=== PATIENT | female | born 1940 | race Caucasian/White ===

== ENCOUNTER 2023-01-21 10:30 | Observation (INO) | payer MEDICARE ==
[2023-01-21] MEDS ORDERED: CLONIDINE 0.1 MG TABLET PO ONE (10:50)
[2023-01-21] MEDS ORDERED: CLONIDINE 0.1 MG TABLET ONE (10:56)
[2023-01-21 11:13] LABS: Absolute Neutrophil Ct (ANC) 4.67 x10^3/uL (1.4-6.9); BASOPHIL % 0.7 % (0.0-0.4); Basophil (Absolute #) 0.06 x10^3/uL (0-0.4); Eosinophil % 2.3 % (0.00-5.0); Eosinophil (Absolute #) 0.19 x10^3/uL (0-0.5); IMMATURE GRAN # 0.02 x10^3u/L (0.00-0.03); IMMATURE GRAN % 0.2 % (0.00-0.4); Lymphocyte (Absolute #) 2.69 x10^3/uL (1.0-4.6); Lymphocytes % 32.8 % (24.0-44.0); Mean Cell Volume 92.8 fL (78-100); Mean Corpuscular Hemoglobin 28.4 pg (26-32); Mean Corpuscular Hgb Concent. 30.6 g/dL (32-36); Mean Platelet Volume 9.1 fL (7.5-11.0); Monocyte (Absolute #) 0.58 x10^3/uL (0.0-1.3); Monocytes % 7.1 % (0.0-12.0); Neutrophil % 56.9 % (36.0-66.0); Platelet Count 254 x10^3/uL (150-450); Red Blood Count 3.88 x10^6/uL (4.1-5.4); Red Cell Distribution Width 13.7 % (11.5-14.0); White Blood Count 8.2 x10^3/uL (4.0-10.5)
[2023-01-21 11:21] LABS: ADD URINE CULTURE? YES (NO); Appearance Clear (Clear); Bacteria None Seen /HPF (None Seen); Bilirubin Negative (Negative); Blood NHT (Negative); Epithelial Cells None Seen /HPF (None Seen); Glucose, Urine Negative (Negative); Hyaline Casts NONE SEEN /LPF (0-2); Ketones Negative (Negative); Leukocyte Esterase Negative (Negative); Nitrite Negative (Negative); Protein,Urine Dip Trace (Negative); RBC 0-2 /HPF (0-5); Specific Gravity 1.015 (1.005-1.030); Urobilinogen 0.2 mg/dL (0.2)
[2023-01-21] MEDS ORDERED: Lasix 40 MG/4 ML IV ONE (11:22)
[2023-01-21 11:28] LABS: ALBUMIN 4.2 g/dL (3.5-5.0); ANION GAP 11.1 MEQ/L (5-15); BILIRUBIN,TOTAL 0.5 mg/dL (0.2-1.3); Calcium 10.6 mg/dL (8.4-10.2); Creatinine 1 1.58 mg/dL (0.52-1.04); EST GLOMERULAR FILTRATION RATE 33.4 ML/MIN; Potassium 4.2 mmol/L (3.5-5.1); Total Protein 7.5 g/dL (6.3-8.2)
[2023-01-21 11:30] LABS: PROTIME 10.9 SECONDS (9.4-12.5); PTT 22.7 SECONDS (25.1-36.5)
--- NOTE | 2023-01-21 11:30 | ERPHSYRPT ---
- History of Present Illness Source: patient, EMS Exam Limitations: no limitations Patient Subjective Stated Complaint: Pt states "This all started last night. I have been swelling for the past couple of days but last night I started to have some difficulty breathing and my head is killing me." Triage Nursing Assessment: Pt presented alert and oriented X 3, skin wpd. Pt ambulates with an upright steady gait, able to speak in clear full sentences. Pt in no appaernt respiratory distress. Pt resting comfortably on the bed. Physician History: 83 yo WF who is 2L O2 dep at home presents per EMS w increasing LE edema and increasing DUE. She has had nausea and diarrhea wo vomiting. Pt denies chest pain/fever/worsening cough/abdominal pain. She stopped smoking 09/19. Timing/Duration: day(s) (2 days) Activities at Onset: rest Possible Cause: occasional episodes Modifying Factors: Improves With: activity Associated Symptoms: denies symptoms, edema Allergies/Adverse Reactions: Penicillins Allergy (Severe, Verified 01/21/23 10:45) Swelling Home Medications: Albuterol Sulfate [Albuterol Sulfate Hfa] 18 gm IH DAILY 01/21/23 [History] Fluticasone/Umeclidin/Vilanter [Trelegy Ellipta 200-62.5-25] 1 tab PO DAILY 01/21/23 [History] Hydrochlorothiazide 25 mg [hydroDIURIL 25 MG] 25 mg PO DAILY 01/21/23 [History] Hydrocodone/Acetaminophen [Hydrocodone-Acetamin 10-325 mg] 1 each PO DAILY 01/21/23 [History] Meloxicam [Mobic] 15 mg PO DAILY 01/21/23 [History] NIFEdipine [Nifedipine ER] 60 mg PO DAILY 01/21/23 [History] PANTOPRAZOLE 40 mg Tablet [Protonix 40MG Tablet] 40 mg PO DAILY 01/21/23 [History] PARoxetine HCL [Paxil] 40 mg PO DAILY 01/21/23 [History] Potassium Chloride 10 meq PO DAILY 01/21/23 [History] Trazodone HCl 100 mg PO DAILY 01/21/23 [History] prednisoLONE [Prednisolone] 10 mg PO DAILY 01/21/23 [History] Hx Tetanus, Diphtheria Vaccination/Date Given: Yes Hx Influenza Vaccination/Date Given: Yes Hx Pneumococcal Vaccination/Date Given: Yes Immunizations Up to Date: Yes Travel Risk - International Travel Have you traveled outside of the country in past 3 weeks: No - Coronavirus Screening Are you exhibiting any of the following symptoms?: Yes Symptoms: Shortness of Breath, Headaches/Body Aches/Fatigue Close contact with a COVID-19 positive Pt in past 14-21 Days: No - Vaccine Status Have you recieved a Covid-19 vaccination: Yes [employer] Player: Moderna - Vaccination Dates Date of 2cond Vaccination (if applicable): 2020 - Review of Systems Constitutional: No Symptoms, Malaise Eyes: No Symptoms Ears, Nose, & Throat: No Symptoms Respiratory: No Symptoms, Dyspnea on Exertion (WILSON) Cardiac: No Symptoms, Edema Abdominal/Gastrointestinal: No Symptoms, Diarrhea Genitourinary Symptoms: No Symptoms Musculoskeletal: No Symptoms Skin: No Symptoms Neurological: No Symptoms Psychological: No Symptoms Endocrine: No Symptoms Hematologic/Lymphatic: No Symptoms Immunological/Allergic: No Symptoms - Past Medical History Pertinent Past Medical History: Yes Neurological History: No Pertinent History ENT History: No Pertinent History Cardiac History: Hypertension Respiratory History: CHF, COPD Endocrine Medical History: No Pertinent History Musculoskeletal History: Arthritis GI Medical History: GERD History: No Pertinent History Psycho-Social History: Anxiety, Depression Female Reproductive Disorders: No Pertinent History - Past Surgical History Past Surgical History: Yes Other Surgical History: 4 x hernia. bilat knee. samir. appi. hysterectomy - Social History Smoking Status: Former smoker Exposure to second hand smoke: No Drug Use: none Patient Lives Alone: Yes - Nursing Vital Signs Nursing Vital Signs: Initial Vital Signs Temperature 98.1 F 01/21/23 10:35 Pulse Rate 75 01/21/23 10:35 Respiratory Rate 22 01/21/23 10:35 Blood Pressure 263/105 01/21/23 10:35 O2 Sat by Pulse Oximetry 99 01/21/23 10:35 Pain Scale Pain Intensity 0 Hypertensive - Physical Exam General Appearance: no apparent distress Eye Exam: PERRL/EOMI, eyes nml inspection Ears, Nose, Throat Exam: hearing grossly normal, normal pharynx Neck Exam: normal inspection, non-tender, supple, full range of motion, No Brudzinski, No Kernig's, No meningismus Respiratory Exam: airway intact, wheezing (Scattered B expiratory wheezes), No respiratory distress Cardiovascular/Chest Exam: normal heart sounds, regular rate/rhythm, No murmur Abdominal/Gastrointestinal Exam: soft, normal bowel sounds, No tenderness Extremity Exam: pedal edema (2+ B) Neurologic Exam: alert, oriented x 3, cooperative, program professional II-XII nml as tested, normal mood/affect, sensation nml Skin Exam: normal color, warm Lymphatic Exam: No adenopathy SpO2 Interpretation: normal SpO2: 99 O2 Delivery: Room Air - Course Nursing assessment & vital signs reviewed: Yes EKG Interpreted by Me: RATE (NSR/Rate 77/Normal QT-QTc/Tall R wave V2/No acute ST segment changes) - Radiology Exams Chest X-ray Interpretation: Discussed w/ radiologist (NAD) Ordered Tests: Active Orders 24 hr Category Date Time Status Bedrest ROUTINE Activity 01/21/23 12:15 Active Code Status Order ROUTINE Care 01/21/23 12:15 Active EKG-ER Only STAT Care 01/21/23 10:31 Active Gabriel [Catheter-[place] Gabriel] STAT Care 01/21/23 11:09 Active IV Care Q6H Care 01/21/23 12:[address] in Observation ROUTINE Care 01/21/23 12:15 Active Noe Hose, Apply ROUTINE Care 01/21/23 12:15 Active Vital Signs Q4H Care 01/21/23 12:15 Active Weight,Daily 0600 Care 01/21/23 12:15 Active Heart-Healthy Diet Diet 01/21/23 Dinner Active CHEST 1 VIEW (PORTABLE) Routine Exams 01/22/23 07:00 Ordered CHEST 1 VIEW (PORTABLE) Stat Exams 01/21/23 10:32 Completed CBC AM.LAB Lab 01/22/23 04:00 Ordered CBC W DIFF Stat Lab 01/21/23 11:12 Completed CMP AM.LAB Lab 01/22/23 04:00 Ordered CMP Stat Lab 01/21/23 11:12 Completed CULTURE,URINE Stat Lab 01/21/23 11:04 Received Lactic Acid Stat Lab 01/21/23 10:58 Completed MAGNESIUM Stat Lab 01/21/23 11:12 Completed NT PRO BNPII Stat Lab 01/21/23 11:12 Completed PROTIME WITH INR Stat Lab 01/21/23 11:12 Completed PTT Stat Lab 01/21/23 11:12 Completed TROPONIN Q4H Lab 01/21/23 11:12 Completed TROPONIN Q4H Lab 01/21/23 14:45 Ordered TROPONIN Q4H Lab 01/21/23 18:45 Ordered UA W/RFX UR CULTURE Stat Lab 01/21/23 11:04 Completed Oxygen Nasal Cannula 3 lpm RT 01/21/23 12:15 Active Respiratory Therapy Assessment DAILY RT 01/21/23 11:51 Active Transfer Order Routine Transfer 01/21/23 Ordered Medication Summary Generic Name Dose Route Start Last Admin Trade Name Freq PRN Reason Stop Dose Admin Albuterol/Ipratropium 3 ml 01/21/23 15:00 Ipratropium/Albuterol Sulfate 3 Ml Ampul.Neb IH 02/20/23 14:59 Q4HRT MARGARET Furosemide 40 mg 01/21/23 12:30 Furosemide 40 Mg/4 Ml Vial IV 02/20/23 12:29 Q12H MARGARET Heparin Sodium (Beef Lung) 5,000 unit 01/21/23 22:00 Heparin 5000 Units/0.5 Ml 5,000 Unit/0.5 Ml Syr SQ 02/20/23 21:59 BID MARGARET Discontinued Medications Generic Name Dose Route Start Last Admin Trade Name Joey PRN Reason Stop Dose Admin Albuterol/Ipratropium 3 ml 01/21/23 11:31 01/21/23 11:51 Ipratropium/Albuterol Sulfate 3 Ml Ampul.Neb IH 01/21/23 11:32 3 ml STAT ONE Administration Albuterol/Ipratropium Confirm 01/21/23 11:41 Ipratropium/Albuterol Sulfate 3 Ml Ampul.Neb Administered 01/21/23 11:42 Dose 3 ml IH .STK-MED ONE Clonidine 0.2 mg 01/21/23 10:50 01/21/23 10:57 Clonidine Hcl 0.1 Mg Tablet PO 01/21/23 10:51 0.2 mg STAT ONE Administration Clonidine Confirm 01/21/23 10:56 Clonidine Hcl 0.1 Mg Tablet Administered 01/21/23 10:57 Dose 0.2 mg .ROUTE .STK-MED ONE Methylprednisolone Sodium 0 mg 01/21/23 12:20 Succinate 125 mg/ Sterile IV 01/21/23 12:21 Water 2 ml STAT ONE Furosemide 40 mg 01/21/23 11:22 01/21/23 11:38 Furosemide 40 Mg/4 Ml Vial IV 01/21/23 11:23 40 mg STAT ONE Administration Furosemide Confirm 01/21/23 11:37 Furosemide 40 Mg/4 Ml Vial Administered 01/21/23 11:38 Dose 40 mg .ROUTE .STK-MED ONE Hydralazine HCl 20 mg 01/21/23 11:35 01/21/23 11:38 Hydralazine Hcl 20 Mg/Ml Vial IV 01/21/23 11:36 Not Given STAT ONE Hydralazine HCl Confirm 01/21/23 11:36 Hydralazine Hcl 20 Mg/Ml Vial Administered 01/21/23 11:37 Dose 20 mg .ROUTE .STK-MED ONE Lab/Rad Data: Laboratory Result Diagrams 01/21/23 11:12 01/21/23 11:12 Laboratory Results 01/21/23 01/21/23 01/21/23 Range/Units 11:12 11:12 11:12 WBC (4.0-10.5) x10^3/uL RBC (4.1-5.4) x10^6/uL Hgb (12.0-16.0) g/dL Hct (35-47) % MCV (78-100) fL MCH (26-32) pg MCHC (32-36) g/dL RDW (11.5-14.0) % Plt Count (150-450) x10^3/uL MPV (7.5-11.0) fL Gran % (36.0-66.0) % Immature Gran % (Auto) (0.00-0.4) % Nucleat RBC Rel Count (0.00-0.1) % Eos # (Auto) (0-0.5) x10^3/uL Immature Gran # (Auto) (0.00-0.03) x10^3u/L Absolute Lymphs (auto) (1.0-4.6) x10^3/uL Absolute Monos (auto) (0.0-1.3) x10^3/uL Absolute Nucleated RBC (0.00-0.01) x10^3u/L Lymphocytes % (24.0-44.0) % Monocytes % (0.0-12.0) % Eosinophils % (0.00-5.0) % Basophils % (0.0-0.4) % Absolute Granulocytes (1.4-6.9) x10^3/uL Basophils # (0-0.4) x10^3/uL PT 10.9 (9.4-12.5) SECONDS INR 1.00 (0.8-3.0) APTT 22.7 L (25.1-36.5) SECONDS Sodium (137-145) mmol/L Potassium (3.5-5.1) mmol/L Chloride (98-107) mmol/L Carbon Dioxide (22-30) mmol/L Anion Gap (5-15) MEQ/L BUN (7-17) mg/dL Creatinine (0.52-1.04) mg/dL Estimated GFR ML/MIN Glucose (74-106) mg/dL Lactic Acid (0.4-2.0) Calcium (8.4-10.2) mg/dL Magnesium (1.6-2.3) mg/dL Total Bilirubin (0.2-1.3) mg/dL AST (14-36) U/L ALT (0-35) U/L Alkaline Phosphatase (38-126) U/L Troponin I 0.018 (0.000-0.034) ng/mL NT-Pro-B Natriuret Pep 656 (<300) pg/mL Serum Total Protein (6.3-8.2) g/dL Albumin (3.5-5.0) g/dL Urine Color (Yellow) Urine Appearance (Clear) Urine pH (4.6-8.0) Ur Specific [place] (1.005-1.030) Urine Protein (Negative) Urine Glucose (UA) (Negative) mg/dL Urine Ketones (Negative) Urine Blood (Negative) Urine Nitrite (Negative) Urine Bilirubin (Negative) Urine Urobilinogen (0.2) mg/dL Ur Leukocyte Esterase (Negative) U Hyaline Cast (Auto) (0-2) /LPF Urine Microscopic RBC (0-5) /HPF Urine Microscopic WBC (0-5) /HPF Ur Epithelial Cells (None Seen) /HPF Urine Bacteria (None Seen) /HPF Urine Culture Reflexed (NO) Influenza Type A Ag (NEGATIVE) Influenza Type B Ag (NEGATIVE) RSV (PCR) (NEGATIVE) SARS-CoV-2 (PCR) (NEGATIVE) 01/21/23 01/21/23 01/21/23 Range/Units 11:12 11:12 11:04 WBC 8.2 (4.0-10.5) x10^3/uL RBC 3.88 L (4.1-5.4) x10^6/uL Hgb 11.0 L (12.0-16.0) g/dL Hct 36.0 (35-47) % MCV 92.8 (78-100) fL MCH 28.4 (26-32) pg MCHC 30.6 L (32-36) g/dL RDW 13.7 (11.5-14.0) % Plt Count 254 (150-450) x10^3/uL MPV 9.1 (7.5-11.0) fL Gran % 56.9 (36.0-66.0) % Immature Gran % (Auto) 0.2 (0.00-0.4) % Nucleat RBC Rel Count 0.0 (0.00-0.1) % Eos # (Auto) 0.19 (0-0.5) x10^3/uL Immature Gran # (Auto) 0.02 (0.00-0.03) x10^3u/L Absolute Lymphs (auto) 2.69 (1.0-4.6) x10^3/uL Absolute Monos (auto) 0.58 (0.0-1.3) x10^3/uL Absolute Nucleated RBC 0.00 (0.00-0.01) x10^3u/L Lymphocytes % 32.8 (24.0-44.0) % Monocytes % 7.1 (0.0-12.0) % Eosinophils % 2.3 (0.00-5.0) % Basophils % 0.7 (0.0-0.4) % Absolute Granulocytes 4.67 (1.4-6.9) x10^3/uL Basophils # 0.06 (0-0.4) x10^3/uL PT (9.4-12.5) SECONDS INR (0.8-3.0) APTT (25.1-36.5) SECONDS Sodium 136 L (137-145) mmol/L Potassium 4.2 (3.5-5.1) mmol/L Chloride 102 (98-107) mmol/L Carbon Dioxide 27 (22-30) mmol/L Anion Gap 11.1 (5-15) MEQ/L BUN 26 H (7-17) mg/dL Creatinine 1.58 H (0.52-1.04) mg/dL Estimated GFR 33.4 ML/MIN Glucose 100 (74-106) mg/dL Lactic Acid (0.4-2.0) Calcium 10.6 H (8.4-10.2) mg/dL Magnesium 2.0 (1.6-2.3) mg/dL Total Bilirubin 0.50 (0.2-1.3) mg/dL AST 21 (14-36) U/L ALT 12 (0-35) U/L Alkaline Phosphatase 83 (38-126) U/L Troponin I (0.000-0.034) ng/mL NT-Pro-B Natriuret Pep (<300) pg/mL Serum Total Protein 7.5 (6.3-8.2) g/dL Albumin 4.2 (3.5-5.0) g/dL Urine Color Yellow (Yellow) Urine Appearance Clear (Clear) Urine pH 6.0 (4.6-8.0) Ur Specific [place] 1.015 (1.005-1.030) Urine Protein Trace A (Negative) Urine Glucose (UA) Negative (Negative) mg/dL Urine Ketones Negative (Negative) Urine Blood NHT (Negative) Urine Nitrite Negative (Negative) Urine Bilirubin Negative (Negative) Urine Urobilinogen 0.2 (0.2) mg/dL Ur Leukocyte Esterase Negative (Negative) U Hyaline Cast (Auto) NONE SEEN (0-2) /LPF Urine Microscopic RBC 0-2 (0-5) /HPF Urine Microscopic WBC 3-5 (0-5) /HPF Ur Epithelial Cells None Seen (None Seen) /HPF Urine Bacteria None Seen (None Seen) /HPF Urine Culture Reflexed YES (NO) Influenza Type A Ag (NEGATIVE) Influenza Type B Ag (NEGATIVE) RSV (PCR) (NEGATIVE) SARS-CoV-2 (PCR) (NEGATIVE) 01/21/23 01/21/23 Range/Units 10:58 10:45 WBC (4.0-10.5) x10^3/uL RBC (4.1-5.4) x10^6/uL Hgb (12.0-16.0) g/dL Hct (35-47) % MCV (78-100) fL MCH (26-32) pg MCHC (32-36) g/dL RDW (11.5-14.0) % Plt Count (150-450) x10^3/uL MPV (7.5-11.0) fL Gran % (36.0-66.0) % Immature Gran % (Auto) (0.00-0.4) % Nucleat RBC Rel Count (0.00-0.1) % Eos # (Auto) (0-0.5) x10^3/uL Immature Gran # (Auto) (0.00-0.03) x10^3u/L Absolute Lymphs (auto) (1.0-4.6) x10^3/uL Absolute Monos (auto) (0.0-1.3) x10^3/uL Absolute Nucleated RBC (0.00-0.01) x10^3u/L Lymphocytes % (24.0-44.0) % Monocytes % (0.0-12.0) % Eosinophils % (0.00-5.0) % Basophils % (0.0-0.4) % Absolute Granulocytes (1.4-6.9) x10^3/uL Basophils # (0-0.4) x10^3/uL PT (9.4-12.5) SECONDS INR (0.8-3.0) APTT (25.1-36.5) SECONDS Sodium (137-145) mmol/L Potassium (3.5-5.1) mmol/L Chloride (98-107) mmol/L Carbon Dioxide (22-30) mmol/L Anion Gap (5-15) MEQ/L BUN (7-17) mg/dL Creatinine (0.52-1.04) mg/dL Estimated GFR ML/MIN Glucose (74-106) mg/dL Lactic Acid 1.1 (0.4-2.0) Calcium (8.4-10.2) mg/dL Magnesium (1.6-2.3) mg/dL Total Bilirubin (0.2-1.3) mg/dL AST (14-36) U/L ALT (0-35) U/L Alkaline Phosphatase (38-126) U/L Troponin I (0.000-0.034) ng/mL NT-Pro-B Natriuret Pep (<300) pg/mL Serum Total Protein (6.3-8.2) g/dL Albumin (3.5-5.0) g/dL Urine Color (Yellow) Urine Appearance (Clear) Urine pH (4.6-8.0) Ur Specific [place] (1.005-1.030) Urine Protein (Negative) Urine Glucose (UA) (Negative) mg/dL Urine Ketones (Negative) Urine Blood (Negative) Urine Nitrite (Negative) Urine Bilirubin (Negative) Urine Urobilinogen (0.2) mg/dL Ur Leukocyte Esterase (Negative) U Hyaline Cast (Auto) (0-2) /LPF Urine Microscopic RBC (0-5) /HPF Urine Microscopic WBC (0-5) /HPF Ur Epithelial Cells (None Seen) /HPF Urine Bacteria (None Seen) /HPF Urine Culture Reflexed (NO) Influenza Type A Ag NEGATIVE (NEGATIVE) Influenza Type B Ag NEGATIVE (NEGATIVE) RSV (PCR) NEGATIVE (NEGATIVE) SARS-CoV-2 (PCR) NEGATIVE (NEGATIVE) - Progress Progress: improved Progress Note: 01/21/23 12:21 Nursing note and vital signs reviewed No food or housing insecurities noted BP markedly improved w 0.2 po Clonidine 40mg IV Lasix w adequate diuresis Duoneb w improvement 125mg IV Solumedrol Gabriel placed by nursing for incontinence/I&O measurement Full code per pt Additional history per son later in visit Obs per Dr. Chavez for hypertensive urgency/CHF/COPD exacerbation 01/21/23 12:27 Discussed with : Anay Counseled pt/family regarding: lab results, diagnosis, need for follow-up, rad results Medical Desision Making - Independent Historian Additional History obtained from: Child - Discussion of managment Care discussed with:: on-call "doc" Reviewed:: Test results, Need for additional workup Agreed on:: Treatment plan, place in obs Will see patient: in hospital - Diagnostic Testing Diagnostic test were ordered, analyzed, and reviewed by me: Yes Radiological Interpretation: Discussed w/ radiologist - Risk of complications The pt has a high risk of morbidity or mortality based on: Drug therapy requiring intensive monitoring for toxicity - Departure Departure Disposition: Observation Clinical Impression: Hypertensive urgency, CHF (congestive heart failure), COPD (chronic obstructive pulmonary disease) Condition: Stable Critical Care Time: Yes Critical Care Time(excluding separately billable procedures): Critical 30-74 mins Referrals: MICHAELA STRATTON MD [Primary Care Provider] - Follow up/PCP as directed Instructions: Heart Failure, Chronic Obstructive Pulmonary Disease
[2023-01-21] MEDS ORDERED: DUONEB 0.5-3 MG/3 ml Neb IH ONE ×2 (11:31→11:41)
[2023-01-21] MEDS ORDERED: APRESOLINE 20 MG/ML INJ IV ONE (11:35)
[2023-01-21] MEDS ORDERED: APRESOLINE 20 MG/ML INJ ONE (11:36)
[2023-01-21] MEDS ORDERED: Lasix 40 MG/4 ML ONE (11:37)
[2023-01-21 11:45] LABS: INFLUENZA A NEGATIVE (NEGATIVE); INFLUENZA B NEGATIVE (NEGATIVE); RESPIRATORY SYNCTIAL VIRUS NEGATIVE (NEGATIVE); SARS-CoV-2 Xpert Express NEGATIVE (NEGATIVE)
--- NOTE | 2023-01-21 12:08 | XRAY ---
Indication: Dyspnea. Comparison: March 25, 2022 Portable chest again demonstrates COPD and a few tiny calcified granulomas. No focal infiltrate, consolidation, or large effusion. Heart remains borderline enlarged. Bony thorax intact again with osteopenia, mild degenerative changes, and mild scoliosis. Impression: Continued nonacute chest with chronic features.
[2023-01-21] MEDS ORDERED: solu-MEDROL 125 MG, Sterile H2O 10 ml 2 ML IV ONE ×4 (12:20→15:00)
[2023-01-21] MEDS ORDERED: Lasix 40 MG/4 ML IV SCH ×3 (12:30→22:00)
[2023-01-21] MEDS ORDERED: HYDROCODONE-ACETAMIN 10-325 MG PO ONE (13:01)
[2023-01-21] MEDS ORDERED: HYDROCODONE-ACETAMIN 10-325 MG ONE (13:02)
[2023-01-21] MEDS ORDERED: DUONEB 0.5-3 MG/3 ml Neb IH SCH ×2 (15:00)
[2023-01-21] MEDS: VENTOLIN COMMON CANISTER IH SCH ×2 (15:29→19:16)
[2023-01-21] MEDS ORDERED: Ventolin Hfa MDI IH SCH (17:00)
[2023-01-21] MEDS ORDERED: MEDICATION INTERVENTION MC SCH (17:15)
[2023-01-21] MEDS: Adalat CC 30 MG TABLET PO SCH (17:46)
[2023-01-21] MEDS: Paxil 20 MG PO SCH (17:46)
[2023-01-21] MEDS: MELOXICAM PO SCH (17:47)
[2023-01-21] MEDS: Klor Con PO SCH (17:47)
[2023-01-21] MEDS: CLARITIN 10 MG PO SCH (17:47)
[2023-01-21] MEDS: hydroDIURIL 25 MG PO SCH (17:47)
[2023-01-21] MEDS: Protonix 40MG Tablet PO SCH (17:47)
[2023-01-21] MEDS: HYDROCODONE-ACETAMIN 10-325 MG PO PRN ×2 (17:49→21:54)
[2023-01-21] MEDS: Advair Hfa 115/21 Common canister IH SCH (19:17)
[2023-01-21] MEDS: Abilify 10 MG PO SCH (21:52)
[2023-01-21] MEDS: DESYREL 50 MG PO SCH (21:54)
[2023-01-21] MEDS: Neurontin PO SCH (21:55)
[2023-01-21] MEDS ORDERED: HEPARIN 5000 UNITS/0.5 ML (HIGH RISK MED) SQ SCH ×2 (22:00)
[2023-01-22 05:36] LABS: Hematocrit 33.2 % (35-47); Hemoglobin 10.5 g/dL (12.0-16.0); Mean Cell Volume 90.5 fL (78-100); Mean Corpuscular Hemoglobin 28.6 pg (26-32); Mean Corpuscular Hgb Concent. 31.6 g/dL (32-36); Mean Platelet Volume 9.2 fL (7.5-11.0); Platelet Count 260 x10^3/uL (150-450); Red Blood Count 3.67 x10^6/uL (4.1-5.4); Red Cell Distribution Width 13.4 % (11.5-14.0)
[2023-01-22 06:50] LABS: ANION GAP 11.6 MEQ/L (5-15); BILIRUBIN,TOTAL 0.3 mg/dL (0.2-1.3); Calcium 10.7 mg/dL (8.4-10.2); Creatinine 1 1.72 mg/dL (0.52-1.04); EST GLOMERULAR FILTRATION RATE 30.2 ML/MIN; Potassium 4.2 mmol/L (3.5-5.1); Total Protein 7.1 g/dL (6.3-8.2)
[2023-01-22] MEDS: Advair Hfa 115/21 Common canister IH SCH ×2 (07:12→18:55)
[2023-01-22] MEDS: VENTOLIN COMMON CANISTER IH SCH ×5 (07:12→18:55)
--- NOTE | 2023-01-22 08:53 | XRAY ---
Indication: COPD. Comparison: One day earlier. PA/lateral chest remains clear with incidental COPD, tiny focal eventration right hemidiaphragm, and a few tiny calcified granulomas. Heart not enlarged. No new/acute findings.
[2023-01-22] MEDS: Paxil 20 MG PO SCH (09:45)
[2023-01-22] MEDS: Adalat CC 30 MG TABLET PO SCH (09:45)
[2023-01-22] MEDS: MELOXICAM PO SCH (09:45)
[2023-01-22] MEDS: Protonix 40MG Tablet PO SCH (09:46)
[2023-01-22] MEDS: hydroDIURIL 25 MG PO SCH (09:46)
[2023-01-22] MEDS: Neurontin PO SCH ×3 (09:46→21:44)
[2023-01-22] MEDS: Klor Con PO SCH (09:46)
[2023-01-22] MEDS: ENOXAPARIN SODIUM SQ SCH (09:47)
[2023-01-22] MEDS: CLARITIN 10 MG PO SCH (09:50)
[2023-01-22] MEDS ORDERED: NON-FORMULARY ITEM (Nifedipine [Nifedipine Er] 60 MG Tab.Er.24) PO SCH (10:00)
[2023-01-22] MEDS ORDERED: NON-FORMULARY ITEM (Potassium Chloride [Potassium Chloride] 10 MEQ Capsule.Er) PO SCH (10:00)
[2023-01-22] MEDS ORDERED: MELOXICAM 15 MG PO SCH (10:00)
[2023-01-22] MEDS ORDERED: NON-FORMULARY ITEM (Fluticasone/Umeclidin/Vilanter [Trelegy Ellipta 100-62.5-25] 1 EACH Bl IH SCH (10:00)
[2023-01-22] MEDS: Zanaflex 4 MG PO PRN ×2 (12:29→21:47)
[2023-01-22] MEDS: Abilify 10 MG PO SCH (21:44)
[2023-01-22] MEDS: DESYREL 50 MG PO SCH (21:45)
[2023-01-22] MEDS: HYDROCODONE-ACETAMIN 10-325 MG PO PRN (23:42)
[2023-01-23] MEDS: Advair Hfa 115/21 Common canister IH SCH ×2 (07:15→18:37)
[2023-01-23] MEDS: VENTOLIN COMMON CANISTER IH SCH ×4 (07:15→18:37)
[2023-01-23] MEDS: Adalat CC 30 MG TABLET PO SCH (09:32)
[2023-01-23] MEDS: Paxil 20 MG PO SCH (09:32)
[2023-01-23] MEDS: MELOXICAM PO SCH (09:32)
[2023-01-23] MEDS: hydroDIURIL 25 MG PO SCH (09:32)
[2023-01-23] MEDS: CLARITIN 10 MG PO SCH (09:32)
[2023-01-23] MEDS: Neurontin PO SCH ×3 (09:32→21:49)
[2023-01-23] MEDS: Protonix 40MG Tablet PO SCH (09:32)
[2023-01-23] MEDS: Klor Con PO SCH (09:32)
[2023-01-23] MEDS: ENOXAPARIN SODIUM SQ SCH (09:35)
[2023-01-23] MEDS ORDERED: Sodium Chloride 0.9% 1000 ML 1,000 ML IV SCH (12:00)
[2023-01-23] MEDS: solu-MEDROL 40 MG, Sterile H2O 10 ml 1 ML IV SCH ×4 (12:10→21:49)
--- NOTE | 2023-01-23 17:47 | PCM.HP ---
History of Present Illness - Chief Complaint Chief Complaint: Hypertensive urgency/CHF/COPD History of Present Illness: is a 83 year old female.w increasing LE edema and increasing DUE. She has had nausea and diarrhea wo vomiting. Pt denies chest pain/fever/worsening cough/abdominal pain. She stopped smoking 09/19. Timing/Duration: day(s) (2 days) Activities at Onset: rest Possible Cause: occasional episodes Modifying Factors: Improves With: activity Associated Symptoms: denies symptoms, edema - Review of Systems Constitutional: No Fever, No Chills Eyes: No Symptoms Ears, Nose, & Throat: No Symptoms Respiratory: Cough, Orthopnea, Short Of Breath, Wheezing Cardiac: Edema, Orthopnea, PND, No Chest Pain, No Syncope Abdominal/Gastrointestinal: No Abdominal Pain, No Nausea, No Vomiting, No Diarrhea Genitourinary Symptoms: No Dysuria Musculoskeletal: No Back Pain, No Neck Pain Skin: No Rash Neurological: No Dizziness, No Focal Weakness, No Sensory Changes Psychological: No Symptoms Endocrine: No Symptoms Hematologic/Lymphatic: No Symptoms Immunological/Allergic: No Symptoms Medications & Allergies Home Medications: Home Medication List Albuterol 8 gm Mdi Hfa [Ventolin Hfa MDI] 2 puffs IH QID 01/21/23 [History Confirmed 01/21/23] Aripiprazole 10 mg [Abilify 10 MG] 5 mg PO HS 01/21/23 [History Confirmed 01/21/23] Fluticasone/Umeclidin/Vilanter [Trelegy Ellipta 100-62.5-25] 1 puff IH DAILY 01/21/23 [History Confirmed 01/21/23] Gabapentin [Neurontin ] 100 mg PO TID 01/21/23 [History Confirmed 01/21/23] Hydrochlorothiazide 25 mg [hydroDIURIL 25 MG] 25 mg PO DAILY 01/21/23 [History Confirmed 01/21/23] Hydrocodone/Acetaminophen [Hydrocodone-Acetamin 10-325 mg] 1 tab PO TID PRN PRN 01/21/23 [History Confirmed 01/21/23] Loratadine 10 mg [Claritin 10 mg] 10 mg PO DAILY 01/21/23 [History Confirmed 01/21/23] Meloxicam 15 mg PO DAILY 01/21/23 [History Confirmed 01/21/23] NIFEdipine [Nifedipine ER] 60 mg PO DAILY 01/21/23 [History Confirmed 01/21/23] PANTOPRAZOLE 40 mg Tablet [Protonix 40MG Tablet] 40 mg PO DAILY 01/21/23 [History Confirmed 01/21/23] Paroxetine HCl 20 mg [Paxil 20 MG] 40 mg PO DAILY 01/21/23 [History Confirmed 01/21/23] Potassium Chloride 10 meq PO DAILY 01/21/23 [History Confirmed 01/21/23] Trazodone HCl 50 mg [Desyrel 50 mg] 100 mg PO HS 01/21/23 [History Confirm ed 01/21/23] Allergies/Adverse Reactions: Allergies Allergy/AdvReac Type Severity Reaction Status Date / Time Penicillins Allergy Severe Swelling Verified 01/21/23 10:45 - Past Medical History Past Medical History: Yes Neurological History: No Pertinent History ENT History: No Pertinent History Cardiac History: Hypertension Respiratory History: CHF, COPD Endocrine Medical History: No Pertinent History Musculoskelatal History: Arthritis GI Medical History: GERD History: No Pertinent History Pyscho-Social History: Anxiety, Depression Reproductive Disorders: No Pertinent History - Past Surgical History Past Surgical History: Yes Neuro Surgical History: No Pertinent History Cardiac History: No Pertinent History Respiratory Surgery: No Pertinent History GI Surgical History: Appendectomy, Cholecystectomy Musculskeletal Surgical Hx: Joint Replacement Female Surgical History: Hysterectomy Other Surgical History: 4 x hernia. bilat knee. samir. appi. hysterectomy - Social History Smoking Status: Former smoker How long have you smoked: 60 yrs Exposure to second hand smoke: No Alcohol: None Drug Use: none - Physical Exam Vital Signs: Vital Signs - 24 hr Temp Pulse Resp BP Pulse Ox 01/23/23 15:15 76 18 96 01/23/23 11:53 97 F 68 16 129/61 95 01/23/23 10:38 86 22 97 01/23/23 09:05 52 L 20 97 01/23/23 09:00 97.8 F 57 L 17 122/59 01/23/23 08:40 97.8 F 57 L 17 122/59 95 01/23/23 04:37 98.2 F 64 20 135/61 95 01/22/23 23:41 97.9 F 63 18 134/62 96 01/22/23 20:00 98.1 F 67 20 133/61 96 01/22/23 18:55 72 18 93 L General Appearance: no apparent distress, alert Neurologic Exam: alert, oriented x 3, cooperative, normal mood/affect, nml cerebellar function, nml station & gait, sensation nml, No motor deficits Eye Exam: PERRL/EOMI, eyes nml inspection Ears, Nose, Throat Exam: normal ENT inspection, TMs normal, pharynx normal, moist mucous membranes Neck Exam: normal inspection, non-tender, supple, full range of motion Respiratory Exam: diminished breath sounds, crackles/rales, rhonchi, wheezing, No respiratory distress, No accessory muscle use Cardiovascular Exam: regular rate/rhythm, normal heart sounds, normal peripheral pulses Gastrointestinal/Abdomen Exam: soft, normal bowel sounds, No tenderness, No mass Back Exam: normal inspection, normal range of motion, No CVA tenderness, No vertebral tenderness Extremity Exam: normal inspection, normal range of motion, pelvis stable Skin Exam: normal color, warm, dry, No rash Lymphatic Exam: No adenopathy Results - Labs Lab/Micro Results: Lab Results-Last 24 Hours 01/22/23 01/23/23 01/23/23 Range/Units 21:02 08:09 12:37 POC Glucometer 125 H 95 94 (74 to 106) mg/dL Microbiology 01/21/23 11:04 Urine Culture - Final Urine, Catheterized NO GROWTH - Radiology Impressions Radiology Exams & Impressions: Radiology Procedures Category Date Time Status CHEST 2 VIEWS (PA AND LAT) Routine Exams 01/22/23 08:00 Completed Assessment/Plan (1) CHF (congestive heart failure) Current Visit: Yes Status: Acute Qualifiers: Heart failure type: combined systolic and diastolic Heart failure chronicity: acute on chronic Qualified Code(s): I50.43 - Acute on chronic combined systolic (congestive) and diastolic (congestive) heart failure Assessment & Plan: Chief Complaint Diagnosis Hypertensive urgency/CHF/COPD Allergies Allergy/AdvReac Type Severity Reaction Status Date / Time Penicillins Allergy Severe Swelling Verified 01/21/23 10:45 Vital Signs (Last 24 hours) Temp Pulse Resp BP Pulse Ox 01/23/23 15:15 76 18 96 01/23/23 11:53 97 F 68 16 129/61 95 01/23/23 10:38 86 22 97 01/23/23 09:05 52 L 20 97 01/23/23 09:00 97.8 F 57 L 17 122/59 01/23/23 08:40 97.8 F 57 L 17 122/59 95 01/23/23 04:37 98.2 F 64 20 135/61 95 01/22/23 23:41 97.9 F 63 18 134/62 96 01/22/23 20:00 98.1 F 67 20 133/61 96 01/22/23 18:55 72 18 93 L Home Medications Medication Instructions Recorded Confirmed Last Taken Type Albuterol 8 gm Mdi Hfa 2 puffs IH QID 01/21/23 01/21/23 Unknown History [Ventolin Hfa MDI] Aripiprazole 10 mg [Abilify 10 5 mg PO HS 01/21/23 01/21/23 Unknown History MG] Fluticasone/Umeclidin/Vilanter 1 puff IH DAILY 01/21/23 01/21/23 Unknown History [Trelegy Ellipta 100-62.5-25] Gabapentin [Neurontin ] 100 mg PO TID 01/21/23 01/21/23 Unknown History Hydrochlorothiazide 25 mg 25 mg PO DAILY 01/21/23 01/21/23 Unknown History [hydroDIURIL 25 MG] Hydrocodone/Acetaminophen 1 tab PO TID PRN PRN 01/21/23 01/21/23 Unknown History [Hydrocodone-Acetamin 10-325 mg] Loratadine 10 mg [Claritin 10 10 mg PO DAILY 01/21/23 01/21/23 Unknown History mg] Meloxicam 15 mg PO DAILY 01/21/23 01/21/23 Unknown History NIFEdipine [Nifedipine ER] 60 mg PO DAILY 01/21/23 01/21/23 Unknown History PANTOPRAZOLE 40 mg Tablet 40 mg PO DAILY 01/21/23 01/21/23 Unknown History [Protonix 40MG Tablet] Paroxetine HCl 20 mg [Paxil 20 40 mg PO DAILY 01/21/23 01/21/23 01/19/23 History MG] Potassium Chloride 10 meq PO DAILY 01/21/23 01/21/23 Unknown History Trazodone HCl 50 mg [Desyrel 50 100 mg PO HS 01/21/23 01/21/23 Unknown History mg] Current Medications Generic Name Dose Route Start Last Admin Trade Name Freq PRN Reason Stop Dose Admin Hydrocodone Bitart/Acetaminophen 1 tablet 01/21/23 17:00 01/22/23 23:42 Hydrocodone/Acetamin 10-325 Mg Tablet PO 01/26/23 16:59 1 tablet TID PRN PRN Administration PAIN Albuterol Sulfate 2 puff 01/22/23 07:22 01/23/23 15:13 Albuterol Common Canister Inhaler IH 02/20/23 14:59 2 puff QIDRT MARGARET Administration Aripiprazole 5 mg 01/21/23 22:00 01/22/23 21:44 Aripiprazole 10 Mg Tablet PO 02/20/23 21:59 5 mg HS MARGARET Administration Artificial Tears 1 ml 01/23/23 22:00 Polyvinyl Alcohol 15 Ml Bottle OP 02/22/23 21:59 BID MARGARET Methylprednisolone Sodium 0 mg 01/23/23 14:00 01/23/23 12:10 Succinate 40 mg/ Sterile Water IV 02/22/23 13:59 40 mg 1 ml Q8HT MARGARET Administration Enoxaparin Sodium 30 mg 01/22/23 10:00 01/23/23 09:35 Enoxaparin Sodium 30 Mg/0.3 Ml Syringe SQ 02/21/23 09:59 Not Given DAILY MARGARET Gabapentin 100 mg 01/21/23 22:00 01/23/23 16:08 Gabapentin 100 Mg Capsule PO 02/20/23 21:59 100 mg TID MARGARET Administration Hydrochlorothiazide 25 mg 01/21/23 18:00 01/23/23 09:32 Hydrochlorothiazide 25 Mg Tablet PO 02/20/23 17:59 25 mg DAILY MARGARET Administration Sodium Chloride 1,000 mls @ 50 mls/hr 01/23/23 12:00 01/23/23 12:09 Sodium Chloride 0.9% 1000 Ml IV 02/22/23 11:59 50 mls/hr .Q20H MARGARET Administration Loratadine 10 mg 01/21/23 18:00 01/23/23 09:32 Loratadine 10 Mg Tablet PO 02/20/23 17:59 10 mg DAILY MARGARET Administration Meloxicam 15 mg 01/21/23 18:00 01/23/23 09:32 Meloxicam 7.5 Mg Tablet PO 02/20/23 17:59 15 mg DAILY MARGARET Administration Nifedipine 60 mg 01/21/23 18:00 01/23/23 09:32 Nifedipine Xl 30 Mg Tablet.Sa PO 02/20/23 17:59 60 mg DAILY MARGARET Administration Pantoprazole Sodium 40 mg 01/21/23 18:00 01/23/23 09:32 Protonix (Pantoprazole) 40 Mg Tablet PO 02/20/23 17:59 40 mg DAILY MARGARET Administration Paroxetine HCl 40 mg 01/21/23 18:00 01/23/23 09:32 Paroxetine Hcl 20 Mg Tablet PO 02/20/23 17:59 40 mg DAILY MARGARET Administration Potassium Chloride 10 meq 01/21/23 18:00 01/23/23 09:32 Potassium Chloride Tab 10 Meq Tab PO 02/20/23 17:59 10 meq DAILY MARGARET Administration Fluticasone/Salmeterol 2 puff 01/21/23 19:00 01/23/23 07:15 Fluticasone/Salmeterol 115/21 - 120 Puff Common Canister IH 02/20/23 18:59 2 puff BIDRT MARGARET Administration Tizanidine HCl 2 mg 01/22/23 11:56 01/22/23 21:47 Tizanidine Hcl 4 Mg Tablet PO 02/21/23 11:55 2 mg TID PRN PRN Administration MUSCLE SPASMS Trazodone HCl 100 mg 01/21/23 22:00 01/22/23 21:45 Trazodone Hcl 50 Mg Tablet PO 02/20/23 21:59 100 mg HS MARGARET Administration Discontinued Medications Generic Name Dose Route Start Last Admin Trade Name Freq PRN Reason Stop Dose Admin Hydrocodone Bitart/Acetaminophen 1 tablet 01/21/23 13:01 01/21/23 13:02 Hydrocodone/Acetamin 10-325 Mg Tablet PO 01/21/23 13:02 1 tablet STAT ONE Administration Hydrocodone Bitart/Acetaminophen Confirm 01/21/23 13:02 Hydrocodone/Acetamin 10-325 Mg Tablet Administered 01/21/23 13:03 Dose 1 tablet .ROUTE .STK-MED ONE Albuterol Sulfate 4 puff 01/21/23 15:00 01/22/23 09:21 Albuterol Common Canister Inhaler 02/20/23 14:59 Not Given QIDRT MARGARET Albuterol Sulfate gm 01/21/23 17:00 Albuterol Sulfate 8 Gm Mdi Hfa 02/20/23 16:59 QID MARGARET Albuterol/Ipratropium 3 ml 01/21/23 11:31 01/21/23 11:51 Ipratropium/Albuterol Sulfate 3 Ml Ampul.Neb IH 01/21/23 11:32 3 ml STAT ONE Administration Albuterol/Ipratropium Confirm 01/21/23 11:41 Ipratropium/Albuterol Sulfate 3 Ml Ampul.Neb Administered 01/21/23 11:42 Dose 3 ml IH .STK-MED ONE Albuterol/Ipratropium 3 ml 01/21/23 15:00 Ipratropium/Albuterol Sulfate 3 Ml Ampul.Neb 02/20/23 14:59 Q4HRT MARGARET Albuterol/Ipratropium 3 ml 01/21/23 15:00 01/21/23 15:21 Ipratropium/Albuterol Sulfate 3 Ml Ampul.Neb 02/20/23 14:59 Not Given Q4HRT MARGARET Clonidine 0.2 mg 01/21/23 10:50 01/21/23 10:57 Clonidine Hcl 0.1 Mg Tablet PO 01/21/23 10:51 0.2 mg STAT ONE Administration Clonidine Confirm 01/21/23 10:56 Clonidine Hcl 0.1 Mg Tablet Administered 01/21/23 10:57 Dose 0.2 mg .ROUTE .STK-MED ONE Methylprednisolone Sodium 0 mg 01/21/23 12:20 01/21/23 15:00 Succinate 125 mg/ Sterile IV 01/21/23 12:21 Not Given Water 2 ml STAT ONE Methylprednisolone Sodium 0 mg 01/21/23 15:00 01/21/23 15:09 Succinate 125 mg/ Sterile IV 01/21/23 15:01 125 mg Water 2 ml STAT ONE Administration Furosemide 40 mg 01/21/23 11:22 01/21/23 11:38 Furosemide 40 Mg/4 Ml Vial IV 01/21/23 11:23 40 mg STAT ONE Administration Furosemide Confirm 01/21/23 11:37 Furosemide 40 Mg/4 Ml Vial Administered 01/21/23 11:38 Dose 40 mg .ROUTE .STK-MED ONE Furosemide 40 mg 01/21/23 12:30 01/21/23 18:58 Furosemide 40 Mg/4 Ml Vial IV 02/20/23 12:29 Not Given Q12H MARGARET Furosemide 40 mg 01/21/23 14:15 01/21/23 15:01 Furosemide 40 Mg/4 Ml Vial IV 02/20/23 12:29 Not Given Q12H MARGARET Furosemide 40 mg 01/21/23 22:00 01/21/23 21:55 Furosemide 40 Mg/4 Ml Vial IV 02/20/23 14:14 40 mg Q12HT MARGARET Administration Heparin Sodium (Beef Lung) 5,000 unit 01/21/23 22:00 Heparin 5000 Units/0.5 Ml 5,000 Unit/0.5 Ml Syr SQ 02/20/23 21:59 BID MARGARET Heparin Sodium (Beef Lung) 5,000 unit 01/21/23 22:00 01/21/23 21:54 Heparin 5000 Units/0.5 Ml 5,000 Unit/0.5 Ml Syr SQ 02/20/23 21:59 5,000 unit BID MARGARET Administration Hydralazine HCl 20 mg 01/21/23 11:35 01/21/23 11:38 Hydralazine Hcl 20 Mg/Ml Vial IV 01/21/23 11:36 Not Given STAT ONE Hydralazine HCl Confirm 01/21/23 11:36 Hydralazine Hcl 20 Mg/Ml Vial Administered 01/21/23 11:37 Dose 20 mg .ROUTE .STK-MED ONE Miscellaneous Information 1 each 01/21/23 17:15 Medication Intervention 1 Each Each 02/20/23 17:14 .RN TO CHECK MARGARET Intake & Output (Last 24 hours) 01/21/23 01/22/23 01/23/23 01/24/23 11:59 11:59 11:59 11:59 Intake Total 960 1960 120 Output Total 200 3905 4800 400 Balance -200 -6337 -2840 -280 Weight 93.3 kg 85.1 kg 84.7 kg Microbiology Results (Last 24 hours) 01/21/23 11:04 Urine, Catheterized Urine Culture - Final NO GROWTH Laboratory Results (Last 24 hours) 01/23/23 01/23/23 01/22/23 12:37 08:09 21:02 POC Glucometer 94 95 125 H Orders (Last 24 hours) Category Date Time Status Discharge Planning,Consult Routine Discharge 01/23/23 Active POCT GLUCOSE Stat Lab 01/22/23 21:02 Completed POCT GLUCOSE Stat Lab 01/23/23 08:09 Completed POCT GLUCOSE Stat Lab 01/23/23 12:37 Completed Methylprednisolone Sod Suc 40M [solu-MEDROL] 40 mg Med 01/23/23 14:00 Active Water For Injection,Sterile [Sterile H2O 10 ml] 1 ml IV Q8HT NaCl 0.9% 1000 ml [Sodium Chloride 0.9% 1000 ML] 1,000 Med 01/23/23 12:00 Active ml IV 50 mls/hr Polyvinyl Alcohol Tears [Artificial Tears 15 ML] Med 01/23/23 22:00 Active 1 ml OP BID Patient Care Notes (Last 24 hours) 01/23/23 13:02 Case Management Note by Patricia Oneill SPOKE WITH THADDEUS AT [facility], FAXED REFERRAL AT THIS TIME. Initialized on 01/23/23 13:02 - END OF NOTE 01/23/23 12:00 (created 01/23/23 12:46) Case Management Note by Patricia Oneill DR ROUNDED AND EVALUATED. DISCUSSED PLAN OF CARE WITH PT AND FAMILY AT BEDSIDE. ALL QUESTIONS ANSWERED. DISCUSSED THAT PT WOULD NEED AN IV STARTED. SOLUMEDROL 40MG IV Q8H AND NS @ 50CC/HR. ALSO, DISCUSSED [facility] (NURSE, AIDE, PT/OT) WITH PT AND FAMILY AND NOW PT IS AGREEABLE TO HAVE [facility] FOR ADDNL SUPPORT ON DISCHARGE. SON, JOSY, DOES REQUEST THAT [facility] STAFF CALL HIM ON THEIR WAY OUT SO HE CAN MAKE SURE THAT THEIR DOG IS PUT UP. DISCUSSED THAT WILL RELAY TO [facility]. PT REQUESTS REFERRAL TO [facility] ON DISCHARGE. DENIES ADDNL NEEDS. HAS ALL OTHER EQUIP IN THE HOME AND ALL IN WORKING CONDITION. Initialized on 01/23/23 12:46 - END OF NOTE 01/23/23 01:34 Nursing Note by Linda Pierce 1900 Pt requests continuation of Gabriel Catheter until morning so she "may rest through the night" s/p having received diuretic medication Initialized on 01/23/23 01:34 - END OF NOTE Code(s): I50.9 - HEART FAILURE, UNSPECIFIED (2) COPD exacerbation Current Visit: Yes Status: Acute Code(s): J44.1 - CHRONIC OBSTRUCTIVE PULMONARY DISEASE W (ACUTE) EXACERBATION (3) Hypertensive urgency Current Visit: Yes Status: Acute Code(s): I16.0 - HYPERTENSIVE URGENCY
--- NOTE | 2023-01-23 17:53 | PCM.NOTE ---
Date and Time: 01/23/231746 Subjective Assessment: still very short of breath - Review of Systems Constitutional: No Fever, No Chills Eyes: No Symptoms Ears, Nose, & Throat: No Symptoms Respiratory: Short Of Breath, No Cough Cardiac: No Chest Pain, No Edema, No Syncope Abdominal/Gastrointestinal: No Abdominal Pain, No Nausea, No Vomiting, No Diarrhea Genitourinary Symptoms: No Dysuria Musculoskeletal: No Back Pain, No Neck Pain Skin: No Rash Neurological: No Dizziness, No Focal Weakness, No Sensory Changes Psychological: No Symptoms Endocrine: No Symptoms Hematologic/Lymphatic: No Symptoms Immunological/Allergic: No Symptoms Objective Exam General Appearance: no apparent distress, alert Neurologic Exam: alert, oriented x 3, cooperative, normal mood/affect, nml cerebellar function, sensation nml, No motor deficits Skin Exam: normal color, warm, dry Eye Exam: PERRL, EOMI, eyes nml inspection Ears, Nose, Throat Exam: normal ENT inspection, pharynx normal, moist mucous membranes Neck Exam: normal inspection, non-tender, supple, full range of motion Respiratory Exam: diminished breath sounds, wheezing, No respiratory distress Cardiovascular Exam: regular rate/rhythm, normal heart sounds Gastrointestinal/Abdomen Exam: soft, No tenderness, No mass Extremity Exam: normal inspection, normal range of motion Back Exam: normal inspection, normal range of motion, No CVA tenderness, No vertebral tenderness Pelvic Exam: deferred Rectal Exam: deferred OBJECTIVE DATA Vital Signs: Vital Signs - 24 hr Temp Pulse Resp BP Pulse Ox 01/23/23 15:15 76 18 96 01/23/23 11:53 97 F 68 16 129/61 95 01/23/23 10:38 86 22 97 01/23/23 09:05 52 L 20 97 01/23/23 09:00 97.8 F 57 L 17 122/59 01/23/23 08:40 97.8 F 57 L 17 122/59 95 01/23/23 04:37 98.2 F 64 20 135/61 95 01/22/23 23:41 97.9 F 63 18 134/62 96 01/22/23 20:00 98.1 F 67 20 133/61 96 01/22/23 18:55 72 18 93 L Pain Assessment - Last Documented Pain Intensity 0 Pain Scale Used 0-10 Pain Scale Intake and Output: Intake & Output 04/01/22/23 01/23/23 01/24/23 11:59 11:59 11:59 11:59 Intake Total 960 1960 120 Output Total 200 3905 2990 400 Balance -200 -9994 -9920 -280 Weight 93.3 kg 85.1 kg 84.7 kg Lab Results: Lab Results-Last 24 Hours 01/22/23 01/23/23 01/23/23 Range/Units 21:02 08:09 12:37 POC Glucometer 125 H 95 94 (74 to 106) mg/dL Radiology Exams: Radiology Procedures Category Date Time Status CHEST 2 VIEWS (PA AND LAT) Routine Exams 01/22/23 08:00 Completed Multi-Disciplinary Progress Notes: Multi-Disciplinary Progress Notes 01/23/23 13:02 Case Management Note by Patricia Oneill SPOKE WITH THADDEUS AT [facility], FAXED REFERRAL AT THIS TIME. Initialized on 01/23/23 13:02 - END OF NOTE 01/23/23 12:00 (created 01/23/23 12:46) Case Management Note by Patricia Oneill DR ROUNDED AND EVALUATED. DISCUSSED PLAN OF CARE WITH PT AND FAMILY AT BEDSIDE. ALL QUESTIONS ANSWERED. DISCUSSED THAT PT WOULD NEED AN IV STARTED. SOLUMEDROL 40MG IV Q8H AND NS @ 50CC/HR. ALSO, DISCUSSED [facility] (NURSE, AIDE, PT/OT) WITH PT AND FAMILY AND NOW PT IS AGREEABLE TO HAVE [facility] FOR ADDNL SUPPORT ON DISCHARGE. SON, JOSY, DOES REQUEST THAT [facility] STAFF CALL HIM ON THEIR WAY OUT SO HE CAN MAKE SURE THAT THEIR DOG IS PUT UP. DISCUSSED THAT WILL RELAY TO [facility]. PT REQUESTS REFERRAL TO [facility] ON DISCHARGE. DENIES ADDNL NEEDS. HAS ALL OTHER EQUIP IN THE HOME AND ALL IN WORKING CONDITION. Initialized on 01/23/23 12:46 - END OF NOTE Assessment/Plan (1) CHF (congestive heart failure) Current Visit: Yes Status: Acute Qualifiers: Heart failure type: combined systolic and diastolic Heart failure chronicity: acute on chronic Qualified Code(s): I50.43 - Acute on chronic combined systolic (congestive) and diastolic (congestive) heart failure Code(s): I50.9 - HEART FAILURE, UNSPECIFIED (2) COPD exacerbation Current Visit: Yes Status: Acute Code(s): J44.1 - CHRONIC OBSTRUCTIVE PULMONARY DISEASE W (ACUTE) EXACERBATION (3) Hypertensive urgency Current Visit: Yes Status: Acute Code(s): I16.0 - HYPERTENSIVE URGENCY
[2023-01-23] MEDS ORDERED: Artificial Tears 15 ML OP ONE (18:16)
[2023-01-23] MEDS: Abilify 10 MG PO SCH (21:49)
[2023-01-23] MEDS: Zanaflex 4 MG PO PRN (21:49)
[2023-01-23] MEDS: DESYREL 50 MG PO SCH (21:49)
[2023-01-23] MEDS: Artificial Tears 15 ML OP SCH (21:50)
[2023-01-23] MEDS: HYDROCODONE-ACETAMIN 10-325 MG PO PRN (21:53)
[2023-01-24] MEDS: solu-MEDROL 40 MG, Sterile H2O 10 ml 1 ML IV SCH ×2 (05:21)
[2023-01-24] MEDS: Advair Hfa 115/21 Common canister IH SCH (06:56)
[2023-01-24] MEDS: VENTOLIN COMMON CANISTER IH SCH ×2 (06:56→10:43)
[2023-01-24 09:10] VITALS: BP 146/67; O2SAT 94
[2023-01-24] MEDS: Zanaflex 4 MG PO PRN (09:14)
[2023-01-24] MEDS: MELOXICAM PO SCH (10:31)
[2023-01-24] MEDS: Paxil 20 MG PO SCH (10:31)
[2023-01-24] MEDS: Adalat CC 30 MG TABLET PO SCH (10:31)
[2023-01-24] MEDS: hydroDIURIL 25 MG PO SCH (10:31)
[2023-01-24] MEDS: ENOXAPARIN SODIUM SQ SCH (10:32)
[2023-01-24] MEDS: Protonix 40MG Tablet PO SCH (10:32)
[2023-01-24] MEDS: Klor Con PO SCH (10:32)
[2023-01-24] MEDS: CLARITIN 10 MG PO SCH (10:32)
[2023-01-24] MEDS: Neurontin PO SCH (10:32)
[2023-01-24] MEDS: Artificial Tears 15 ML OP SCH (10:35)
[2023-01-24 10:46] VITALS: PULSE 62
--- NOTE | 2023-01-24 13:22 | PCM.DS ---
Discharge Summary Date of Admission: 01/21/23 14:08 Admitting Physician: MICHAELA STRATTON Primary Care Provider: MICHAELA STRATTON Allergies Allergies Penicillins Allergy (Severe, Verified 01/21/23 10:45) Swelling Hospital Summary - Hospital Course Hospital Course: Chief Complaint Diagnosis Hypertensive urgency/CHF/COPD Allergies Allergy/AdvReac Type Severity Reaction Status Date / Time Penicillins Allergy Severe Swelling Verified 01/21/23 10:45 Vital Signs (Last 24 hours) Temp Pulse Resp BP Pulse Ox 01/24/23 10:45 62 18 94 L 01/24/23 08:00 65 18 146/67 94 L 01/24/23 06:59 77 18 97 01/24/23 02:48 97.8 F 86 22 122/58 95 01/23/23 20:00 97.0 F 96 H 20 146/65 96 01/23/23 18:40 88 18 95 01/23/23 17:00 97.5 F 75 16 136/68 94 L 01/23/23 15:15 76 18 96 Home Medications Medication Instructions Recorded Confirmed Last Taken Type Albuterol 8 gm Mdi Hfa 2 puffs IH QID 01/21/23 01/21/23 Unknown History [Ventolin Hfa MDI] Aripiprazole 10 mg [Abilify 10 5 mg PO HS 01/21/23 01/21/23 Unknown History MG] Fluticasone/Umeclidin/Vilanter 1 puff IH DAILY 01/21/23 01/21/23 Unknown History [Trelegy Ellipta 100-62.5-25] Gabapentin [Neurontin ] 100 mg PO TID 01/21/23 01/21/23 Unknown History Hydrochlorothiazide 25 mg 25 mg PO DAILY 01/21/23 01/21/23 Unknown History [hydroDIURIL 25 MG] Hydrocodone/Acetaminophen 1 tab PO TID PRN PRN 01/21/23 01/21/23 Unknown History [Hydrocodone-Acetamin 10-325 mg] Loratadine 10 mg [Claritin 10 10 mg PO DAILY 01/21/23 01/21/23 Unknown History mg] Meloxicam 15 mg PO DAILY 01/21/23 01/21/23 Unknown History NIFEdipine [Nifedipine ER] 60 mg PO DAILY 01/21/23 01/21/23 Unknown History PANTOPRAZOLE 40 mg Tablet 40 mg PO DAILY 01/21/23 01/21/23 Unknown History [Protonix 40MG Tablet] Paroxetine HCl 20 mg [Paxil 20 40 mg PO DAILY 01/21/23 01/21/23 01/19/23 History MG] Potassium Chloride 10 meq PO DAILY 01/21/23 01/21/23 Unknown History Trazodone HCl 50 mg [Desyrel 50 100 mg PO HS 01/21/23 01/21/23 Unknown History mg] Current Medications Generic Name Dose Route Start Last Admin Trade Name Freq PRN Reason Stop Dose Admin Hydrocodone Bitart/Acetaminophen 1 tablet 01/21/23 17:00 01/23/23 21:53 Hydrocodone/Acetamin 10-325 Mg Tablet PO 01/26/23 16:59 1 tablet TID PRN PRN Administration PAIN Albuterol Sulfate 2 puff 01/22/23 07:22 01/24/23 10:43 Albuterol Common Canister Inhaler IH 02/20/23 14:59 2 puff QIDRT MARGARET Administration Aripiprazole 5 mg 01/21/23 22:00 01/23/23 21:49 Aripiprazole 10 Mg Tablet PO 02/20/23 21:59 5 mg HS MARGARET Administration Artificial Tears 1 ml 01/23/23 22:00 01/24/23 10:35 Polyvinyl Alcohol 15 Ml Bottle OP 02/22/23 21:59 1 ml BID MARGARET Administration Methylprednisolone Sodium 0 mg 01/23/23 14:00 01/24/23 05:21 Succinate 40 mg/ Sterile Water IV 02/22/23 13:59 40 mg 1 ml Q8HT MARGARET Administration Enoxaparin Sodium 30 mg 01/22/23 10:00 01/24/23 10:32 Enoxaparin Sodium 30 Mg/0.3 Ml Syringe SQ 02/21/23 09:59 30 mg DAILY MARGARET Administration Gabapentin 100 mg 01/21/23 22:00 01/24/23 10:32 Gabapentin 100 Mg Capsule PO 02/20/23 21:59 100 mg TID MARGARET Administration Hydrochlorothiazide 25 mg 01/21/23 18:00 01/24/23 10:31 Hydrochlorothiazide 25 Mg Tablet PO 02/20/23 17:59 25 mg DAILY MARGARET Administration Sodium Chloride 1,000 mls @ 50 mls/hr 01/23/23 12:00 01/23/23 12:09 Sodium Chloride 0.9% 1000 Ml IV 02/22/23 11:59 50 mls/hr .Q20H MARGARET Administration Loratadine 10 mg 01/21/23 18:00 01/24/23 10:32 Loratadine 10 Mg Tablet PO 02/20/23 17:59 10 mg DAILY MARGARET Administration Meloxicam 15 mg 01/21/23 18:00 01/24/23 10:31 Meloxicam 7.5 Mg Tablet PO 02/20/23 17:59 15 mg DAILY MARGARET Administration Nifedipine 60 mg 01/21/23 18:00 01/24/23 10:31 Nifedipine Xl 30 Mg Tablet.Sa PO 02/20/23 17:59 60 mg DAILY MARGARET Administration Pantoprazole Sodium 40 mg 01/21/23 18:00 01/24/23 10:32 Protonix (Pantoprazole) 40 Mg Tablet PO 02/20/23 17:59 40 mg DAILY MARGARET Administration Paroxetine HCl 40 mg 01/21/23 18:00 01/24/23 10:31 Paroxetine Hcl 20 Mg Tablet PO 02/20/23 17:59 40 mg DAILY MARGARET Administration Potassium Chloride 10 meq 01/21/23 18:00 01/24/23 10:32 Potassium Chloride Tab 10 Meq Tab PO 02/20/23 17:59 10 meq DAILY MARGARET Administration Fluticasone/Salmeterol 2 puff 01/21/23 19:00 01/24/23 06:56 Fluticasone/Salmeterol 115/21 - 120 Puff Common Canister IH 02/20/23 18:59 2 puff BIDRT MARGARET Administration Tizanidine HCl 2 mg 01/22/23 11:56 01/24/23 09:14 Tizanidine Hcl 4 Mg Tablet PO 02/21/23 11:55 2 mg TID PRN PRN Administration MUSCLE SPASMS Trazodone HCl 100 mg 01/21/23 22:00 01/23/23 21:49 Trazodone Hcl 50 Mg Tablet PO 02/20/23 21:59 100 mg HS MARGARET Administration Discontinued Medications Generic Name Dose Route Start Last Admin Trade Name Joey PRN Reason Stop Dose Admin Hydrocodone Bitart/Acetaminophen 1 tablet 01/21/23 13:01 01/21/23 13:02 Hydrocodone/Acetamin 10-325 Mg Tablet PO 01/21/23 13:02 1 tablet STAT ONE Administration Hydrocodone Bitart/Acetaminophen Confirm 01/21/23 13:02 Hydrocodone/Acetamin 10-325 Mg Tablet Administered 01/21/23 13:03 Dose 1 tablet .ROUTE .STK-MED ONE Albuterol Sulfate 4 puff 01/21/23 15:00 01/22/23 09:21 Albuterol Common Canister Inhaler 02/20/23 14:59 Not Given QIDRT MARGARET Albuterol Sulfate gm 01/21/23 17:00 Albuterol Sulfate 8 Gm Mdi Hfa IH 02/20/23 16:59 QID MARGARET Albuterol/Ipratropium 3 ml 01/21/23 11:31 01/21/23 11:51 Ipratropium/Albuterol Sulfate 3 Ml Ampul.Neb IH 01/21/23 11:32 3 ml STAT ONE Administration Albuterol/Ipratropium Confirm 01/21/23 11:41 Ipratropium/Albuterol Sulfate 3 Ml Ampul.Neb Administered 01/21/23 11:42 Dose 3 ml IH .STK-MED ONE Albuterol/Ipratropium 3 ml 01/21/23 15:00 Ipratropium/Albuterol Sulfate 3 Ml Ampul.Neb 02/20/23 14:59 Q4HRT [facility] Albuterol/Ipratropium 3 ml 01/21/23 15:00 01/21/23 15:21 Ipratropium/Albuterol Sulfate 3 Ml Ampul.Neb 02/20/23 14:59 Not Given Q4HRT MARGARET Artificial Tears Confirm 01/23/23 18:16 Polyvinyl Alcohol 15 Ml Bottle Administered 01/23/23 18:17 Dose 15 ml OP .STK-MED ONE Clonidine 0.2 mg 01/21/23 10:50 01/21/23 10:57 Clonidine Hcl 0.1 Mg Tablet PO 01/21/23 10:51 0.2 mg STAT ONE Administration Clonidine Confirm 01/21/23 10:56 Clonidine Hcl 0.1 Mg Tablet Administered 01/21/23 10:57 Dose 0.2 mg .ROUTE .STK-MED ONE Methylprednisolone Sodium 0 mg 01/21/23 12:20 01/21/23 15:00 Succinate 125 mg/ Sterile IV 01/21/23 12:21 Not Given Water 2 ml STAT ONE Methylprednisolone Sodium 0 mg 01/21/23 15:00 01/21/23 15:09 Succinate 125 mg/ Sterile IV 01/21/23 15:01 125 mg Water 2 ml STAT ONE Administration Furosemide 40 mg 01/21/23 11:22 01/21/23 11:38 Furosemide 40 Mg/4 Ml Vial IV 01/21/23 11:23 40 mg STAT ONE Administration Furosemide Confirm 01/21/23 11:37 Furosemide 40 Mg/4 Ml Vial Administered 01/21/23 11:38 Dose 40 mg .ROUTE .STK-MED ONE Furosemide 40 mg 01/21/23 12:30 01/21/23 18:58 Furosemide 40 Mg/4 Ml Vial IV 02/20/23 12:29 Not Given Q12H MARGARET Furosemide 40 mg 01/21/23 14:15 01/21/23 15:01 Furosemide 40 Mg/4 Ml Vial IV 02/20/23 12:29 Not Given Q12H MARGARET Furosemide 40 mg 01/21/23 22:00 01/21/23 21:55 Furosemide 40 Mg/4 Ml Vial IV 02/20/23 14:14 40 mg Q12HT MARGARET Administration Heparin Sodium (Beef Lung) 5,000 unit 01/21/23 22:00 Heparin 5000 Units/0.5 Ml 5,000 Unit/0.5 Ml Syr SQ 02/20/23 21:59 BID MARGARET Heparin Sodium (Beef Lung) 5,000 unit 01/21/23 22:00 01/21/23 21:54 Heparin 5000 Units/0.5 Ml 5,000 Unit/0.5 Ml Syr SQ 02/20/23 21:59 5,000 unit BID MARGARET Administration Hydralazine HCl 20 mg 01/21/23 11:35 01/21/23 11:38 Hydralazine Hcl 20 Mg/Ml Vial IV 01/21/23 11:36 Not Given STAT ONE Hydralazine HCl Confirm 01/21/23 11:36 Hydralazine Hcl 20 Mg/Ml Vial Administered 01/21/23 11:37 Dose 20 mg .ROUTE .STK-MED ONE Miscellaneous Information 1 each 01/21/23 17:15 Medication Intervention 1 Each Each 02/20/23 17:14 .RN TO CHECK MARGARET Intake & Output (Last 24 hours) 01/22/23 01/23/23 01/24/23 01/25/23 11:59 11:59 11:59 11:59 Intake Total 960 1960 1595 240 Output Total 3905 5000 1250 Balance -2945 -3040 345 240 Weight 85.1 kg 84.7 kg 84.5 kg Orders (Last 24 hours) Category Date Time Status Discharge Routine Discharge 01/24/23 Ordered POCT GLUCOSE Stat Lab 01/23/23 12:37 Completed Methylprednisolone Sod Suc 40M [solu-MEDROL] 40 mg Med 01/23/23 14:00 Active Water For Injection,Sterile [Sterile H2O 10 ml] 1 ml IV Q8HT Polyvinyl Alcohol Tears [Artificial Tears 15 ML] Med 01/23/23 22:00 Active 1 ml OP BID Polyvinyl Alcohol Tears [Artificial Tears 15 ML] Med 01/23/23 18:16 Discontinued 15 ml OP .STK-MED ONE Patient Care Notes (Last 24 hours) 01/24/23 09:40 Case Management Note by Tammy Marte S/W PATIENT- SHE CONTINUES TO DENY ANY NEW NEEDS. [facility] SET UP C FOR PATIENT WITH [facility]. SHE REPORTS SHE HAS ALL THE MEDICAL EQUIPMENT NEEDED AT HOME INCLUDING HOME OXYGEN. SHE PLANS TO RETURN HOME TO HER PLF AT TIME OF DC. SHE HAS FAMILY THAT LIVES CLOSE THAT CAN ASSIST NEEDED Initialized on 01/24/23 09:40 - END OF NOTE 01/24/23 09:37 Case Management Note by Tammy Marte [facility] HAS BEEN SET UP. THEY WERE NOTIFIED SHE IS DCING HOME. THEY WILL NEED FAXED THE DC INSTRUCTIONS, DC MED LIST AND DC SUMMARY ( IF AVAILABLE) TO [phone] Initialized on 01/24/23 09:37 - END OF NOTE - Vitals & Intake/Output Vital Signs: Vital Signs Temperature 97.8 F 01/24/23 02:48 Pulse Rate 62 01/24/23 10:45 Respiratory Rate 18 01/24/23 10:45 Blood Pressure 146/67 01/24/23 08:00 O2 Sat by Pulse Oximetry 94 L 01/24/23 10:45 Intake & Output: Intake & Output 01/22/23 01/23/23 01/24/23 01/25/23 11:59 11:59 11:59 11:59 Intake Total 960 1960 1595 240 Output Total 3905 5000 1250 Balance -2945 -3040 345 240 Weight 85.1 kg 84.7 kg 84.5 kg - Lab Result Diagrams: 01/22/23 04:32 01/22/23 04:32 Micro Results-Entire Visit: Microbiology 01/21/23 11:04 Urine Culture - Final Urine, Catheterized NO GROWTH - Procedures and Test Procedures and Tests throughout Hospitalization: Therapy Orders & Screens 01/21/23 11:51 Respiratory Therapy Assessment DAILY Comment: 01/21/23 12:15 Oxygen Nasal Cannula 3 lpm Comment: 01/21/23 14:29 Oxygen Nasal Cannula 2 lpm Comment: Diagnosis: Hypertensive urgency/CHF/COPD Discharge Exam General Appearance: no apparent distress, alert Neurologic Exam: alert, oriented x 3, cooperative, normal mood/affect, nml cerebellar function, sensation nml, No motor deficits Eye Exam: PERRL, EOMI, eyes nml inspection Ears, Nose, Throat Exam: normal ENT inspection, pharynx normal, moist mucous membranes Neck Exam: normal inspection, non-tender, supple, full range of motion Respiratory Exam: diminished breath sounds, No respiratory distress Cardiovascular Exam: regular rate/rhythm, normal heart sounds Gastrointestinal/Abdomen Exam: soft, No tenderness, No mass Pelvic Exam: deferred Rectal Exam: deferred Back Exam: normal inspection, normal range of motion, No CVA tenderness, No miguelito tebral tenderness Extremity Exam: normal inspection, normal range of motion Skin Exam: normal color, warm, dry Final Diagnosis/Problem List - Final Discharge Diagnosis/Problem (1) CHF (congestive heart failure) Current Visit: Yes Status: Chronic Code(s): I50.9 - HEART FAILURE, UNSPECIFIED (2) COPD exacerbation Current Visit: Yes Status: Resolved Code(s): J44.1 - CHRONIC OBSTRUCTIVE PULMONARY DISEASE W (ACUTE) EXACERBATION (3) Hypertensive urgency Current Visit: Yes Status: Resolved Code(s): I16.0 - HYPERTENSIVE URGENCY - Discharge Discharge Date: 01/24/23 Disposition: Home, Self-Care Condition: Stable Prescriptions: Continue Trazodone HCl 50 mg [Desyrel 50 mg] 100 mg PO HS Albuterol 8 gm Mdi Hfa [Ventolin Hfa MDI] 2 puffs IH QID Potassium Chloride 10 meq PO DAILY NIFEdipine [Nifedipine ER] 60 mg PO DAILY Meloxicam 15 mg PO DAILY Loratadine 10 mg [Claritin 10 mg] 10 mg PO DAILY Hydrocodone/Acetaminophen [Hydrocodone-Acetamin 10-325 mg] 1 tab PO TID PRN PRN PRN Reason: Pain Gabapentin [Neurontin ] 100 mg PO TID Aripiprazole 10 mg [Abilify 10 MG] 5 mg PO HS Fluticasone/Umeclidin/Vilanter [Trelegy Ellipta 100-62.5-25] 1 puff IH DAILY Hydrochlorothiazide 25 mg [hydroDIURIL 25 MG] 25 mg PO DAILY Paroxetine HCl 20 mg [Paxil 20 MG] 40 mg PO DAILY PANTOPRAZOLE 40 mg Tablet [Protonix 40MG Tablet] 40 mg PO DAILY Instructions: High Blood Pressure Emergencies, Exacerbation of COPD (DC) Additional Instructions: [facility] HAS BEEN SET UP. THEY WILL CALL YOU TO ARRANGE A TIME TO COME SEE YOU. THEIR PHONE NUMBER IS [phone] Follow up with: MICHAELA STRATTON MD [Primary Care Provider] - 01/31/23 10:00 am ([place] [facility])
== END 2023-01-24 13:40 | disposition home or self-care (01) ==
LOC: ED 10:30 → MED SURG 14:08
PROVIDERS: ADMIT General Practice; ATTEND General Practice
DX: I11.0 Hypertensive heart disease with heart failure (principal); I50.9 Heart failure, unspecified; J44.1 Chronic obstructive pulmonary disease with (acute) exacerbation; I16.0 Hypertensive urgency; R60.0 Localized edema; Z79.899 Other long term (current) drug therapy; Z20.828 Contact with and (suspected) exposure to other viral communicable diseases; Z99.81 Dependence on supplemental oxygen
CPT/HCPCS: 0241U; 36415; 51701; 51702; 71045; 71046; 80053; 81001; 82947; 83605; 83735; 83880; 84484; 85025; 85027; 85610; 85730; 87086; 93005; 94640; 94760; 96374; 99285; 99291; 93268; J0360; J1644; J1650; J1940; J2920; J2930; A9270-GY; G0378